=== PATIENT | female | born 1975 | race Caucasian/White ===

== ENCOUNTER 2019-01-30 09:18 | Emergency (ER) | payer BC ==
--- NOTE | 2019-01-30 09:49 | UC ---
Respiratory Complaint HPI - HPI Summary HPI Summary: 43 yo female presents with URI symptoms. She tells me that over the last 3-4 days she has had a dry cough, sinus pressure, and b/l earache. She has been taking OTC cold medication with no relief. She does not smoke. Denies fever, chills, sore throat, SOB. She was at a concert 4 days ago and was around a lot of "coughing people". She is most concerned because she is going to [place] this wednesday and does not want to be sick. - History of Current Complaint Stated Complaint: COUGH Time Seen by Provider: 01/30/19 09:48 Hx Obtained From: Patient Hx Last Menstrual Period: 10/29/2015 Onset/Duration: Gradual Onset Severity Initially: Mild Severity Currently: Mild Pain Intensity: 4 Pain Scale Used: 0-10 Numeric Character: Cough: Nonproductive - Allergies/Home Medications Allergies/Adverse Reactions: Allergies Allergy/AdvReac Type Severity Reaction Status Date / Time lactose Allergy diarhea Verified 01/30/19 09:45 PMH/Surg Hx/FS Hx/Imm Hx - Additional Past Medical History Additional PMH: Overactive bladder GI/ History: Gastroesophageal Reflux - Surgical History Surgical History: Yes Surgery Procedure, Year, and Place: tubal ligation; wisdom teeth extracted - Family History Known Family History: Negative: Diabetes - Social History Occupation: Employed Full-time Lives: With Family Alcohol Use: Occasionally Substance Use Type: None Smoking Status (MU): Never Smoked Tobacco - Immunization History Most Recent Influenza Vaccination: never Most Recent Tetanus Shot: unknown Most Recent Pneumonia Vaccination: never Review of Systems All Other Systems Reviewed And Are Negative: No Constitutional: Positive: Negative Skin: Positive: Negative Eyes: Positive: Negative ENT: Positive: Sinus Congestion Respiratory: Positive: Cough Cardiovascular: Positive: Negative Gastrointestinal: Positive: Negative Neurological: Positive: Negative Psychological: Positive: Negative Physical Exam - Summary Physical Exam Summary: GENERAL: NAD. WDWN. No pain distress. SKIN: No rashes, sores, lesions, or open wounds. HEENT: Head: AT/NC Eyes: EOM intact. Conjunctiva clear without inflammation or discharge. Ears: Hearing grossly normal. TMs intact, no bulging, erythema, or edema. Nose: Nasal mucosa pink and moist. NTTP maxillary and frontal sinus. Throat: Posterior oropharynx without exudates, erythema, or tonsillar enlargement. Uvula midline. NECK: Supple. Nontender. No lymphadenopathy. CHEST: CTAB. No accessory muscle use. Breathing comfortably and in no distress. CV: RRR. Pulses intact. Cap refill <2seconds NEURO: Alert. PSYCH: Age appropriate behavior. Triage Information Reviewed: Yes Vital Signs: Vital Signs: Temp Pulse Resp BP Pulse Ox 98.3 F 90 16 129/79 100 01/30/19 09:47 01/30/19 09:47 01/30/19 09:47 01/30/19 09:47 01/30/19 09:47 Vital Signs Reviewed: Yes Respiratory Course/Dx - Course Course Of Treatment: Exam WNL. Suspect viral URI. Discussed with pt and she prefers to have an anbx prescribed if she does not improve within the next 2-3 days before her vacation. - Differential Dx/Diagnosis Provider Diagnosis: URI (upper respiratory infection) Discharge ED - Sign-Out/Discharge Documenting (check all that apply): Patient Departure All imaging exams completed and their final reports reviewed: No Studies - Discharge Plan Condition: Stable Disposition: HOME Prescriptions: Azithromycin TAB* [Zithromax TAB (Z-ANTHONY) 250 mg #6 tabs] 2 tab PO .TODAY, THEN 1 DAILY #1 anthony Benzonatate CAP* [Tessalon 100 MG CAP*] 100 mg PO TID PRN #21 cap PRN Reason: Cough Patient Education Materials: Upper Respiratory Infection (ED) Referrals: Marisela VALDOVINOS,Kay Aquino [Primary Care Provider] - Additional Instructions: If you develop a fever, shortness of breath, chest pain, new or worsening symptoms - please call your PCP or go to the ED immediately. - Billing Disposition and Condition Condition: STABLE Disposition: Home
[2019-01-30 09:51] VITALS: BP 129/79
== END 2019-01-30 10:07 | disposition home or self-care (01) ==
LOC: UCEAST 09:18
DX: J06.9 Acute upper respiratory infection, unspecified (principal); Z91.011 Allergy to milk products
CPT/HCPCS: 99212; G0463